=== PATIENT | female | born 1995 | race Caucasian/White ===

== ENCOUNTER 2019-11-12 12:23 | Emergency (ER) | payer BC ==
[~2019-11-12] VITALS: Ht 170.2 cm; Wt 98.9 kg
--- NOTE | 2019-11-12 12:30 | NUR ---
PT AMBULATED TO ER BED 07
[2019-11-12 12:32] VITALS: BP 119/67
--- NOTE | 2019-11-12 12:40 | NUR ---
c/o headache and a feeling of the room spinning x4 days. pt states her dizziness is worse when laying down. denies n/v. bue/ble strong and equal. PERRLA 3mm. a&o x4. speech clear and appropriate. ambulatory with steady gait. bed in low position, side rail up x1.
--- NOTE | 2019-11-12 12:41 | NUR ---
dr. meier at bedside evaluating pt
[2019-11-12 12:45] VITALS: BP 119/67
--- NOTE | 2019-11-12 12:45 | NUR ---
Joseline van in ED - 11/12/[email or web address] meier at bedside evaluating pt
== END 2019-11-12 12:54 | disposition home or self-care (01) ==
LOC: MED 12:23
DX: R42 Dizziness and giddiness (principal); R11.0 Nausea; R51 Headache
CPT/HCPCS: 99282